=== PATIENT | female | born 1995 | race African-American/Black ===

== ENCOUNTER 2021-05-21 00:04 | Inpatient (IN) ==
[2021-05-21] MEDS ORDERED: ONDANSETRON 4 MG/2 ML VIAL IV PRN (00:22)
[2021-05-21] MEDS ORDERED: BUTORPHANOL 2 MG/ML VIAL IV PRN (00:22)
[2021-05-21] MEDS ORDERED: LACTATED RINGERS 500 ML IV PRN (00:22)
[2021-05-21] MEDS ORDERED: MEPERIDINE 50 MG/1 ML VIAL IV PRN (00:22)
[2021-05-21 00:44] LABS: Basophils % 0.3 % (0.0-0.8); Eosinophils % 0.1 % (0.00-10.9); Hematocrit 34.2 VOL% (35.7-47.0); Hemoglobin 11.1 GM/DL (12.0-16.0); Immature Granulocytes % 0.4 %; Immature Granulocytes Absolute 0.03 #; Lymphocytes # 1.6 10*3/uL (1.4-4.0); Lymphocytes % 19.9 % (21.3-54.2); Mean Corpuscular HGB Conc 32.5 GM/DL (32-36); Mean Corpuscular Volume 82.6 FL (87-102); Mean Platelet Volume 8.9 FL (9.6-12.0); Monocytes % 8.1 % (1.7-12.7); Neutrophils % 71.2 % (38.7-73.9); Platelet Count 207 T/CUMM (130-400); Red Blood Count 4.14 MC/CUMM (3.8-5.5); Red Cell Distribution Width 16.1 % (9.3-17.3); White Blood Count 7.9 T/CUMM (4-12)
[2021-05-21 01:10] LABS: Alanine Aminotransferase 16 U/L (13-56); Albumin 2.4 G/DL (3.4-5.0); Alkaline Phosphatase 161 U/L (45-117); Aspartate Amino Transferase 23 U/L (0-37); Bilirubin,Total < 0.39 MG/DL (0.20-1.00); Blood Urea Nitrogen 4 MG/DL (7-18); Calcium 8.6 MG/DL (8.5-10.1); Carbon Dioxide 20 MMOL/L (21-32); Estimated Glom Filtration Rate 146 ML/MIN; Glucose 103 MG/DL (74-106); Osmolality,Calculated 271.7 MOS/KG (273-304); Potassium 3.1 MMOL/L (3.5-5.1); Sodium 138 MMOL/L (136-145); Total Protein 6.5 G/DL (6.4-8.2); Uric Acid 6.2 MG/DL (2.6-6.0)
[2021-05-21] MEDS: LACTATED RINGERS 1,000 ML IV SCH ×3 (03:45→22:04)
[2021-05-21] MEDS ORDERED: OXYTOCIN/LR 20 UNIT/1,000 ML BAG IV SCH (09:30)
[2021-05-21] MEDS ORDERED: PROMETHAZINE 25 MG/1 ML VIAL IM ONE (12:10)
[2021-05-21] MEDS ORDERED: ONDANSETRON 4 MG/2 ML VIAL IV ONE (12:10)
[2021-05-21] MEDS ORDERED: CITRIC ACID/SODIUM CITRATE 30 ML UDCUP PO ONE (12:10)
[2021-05-21] MEDS ORDERED: FAMOTIDINE 20 MG/2 ML VIAL IV ONE (12:10)
[2021-05-21] MEDS ORDERED: NALOXONE 0.4 MG/ML VIAL IV PRN (12:10)
[2021-05-21] MEDS ORDERED: diphenhydrAMINE 50 MG/1 ML VIAL IV PRN ×2 (12:10)
[2021-05-21] MEDS ORDERED: hydrOXYzine HCL 25 MG/1 ML VIAL IM PRN (12:10)
[2021-05-21] MEDS: ePHEDrine 50 MG/ML VIAL IV PRN ×2 (13:39→13:44)
[2021-05-21 15:36] LABS: Bilirubin,Urine Negative (Negative); Blood, Urine Negative (Negative); Glucose,Urine (UA) Negative (Negative); Ketones,Urine Negative (Negative); Nitrite,Urine Negative (Negative); Protein,Urine Negative; RBC,Urine <1 /HPF (0-4); Squamous Epithelial Cell,Urine Occasional /HPF (0-10); Urine Appearance CLEAR (Clear); Urine Color Yellow (Yellow); Urine Specific Gravity 1.005 (1.001-1.035); Urine Urobilinogen < 2.0 EU/DL (0.2-1.0)
[2021-05-21] MEDS ORDERED: POTASSIUM CHLORIDE RIDER 10 MEQ/100 ML PREMIX IV PRN ×2 (19:01→19:06)
[2021-05-21] MEDS: fentaNYL 2 MCG/ROPIV 0.2% EPID 100 ML EPIDURAL SCH (20:05)
[2021-05-21] MEDS ORDERED: POTASSIUM CHLORIDE 20 MEQ TABLET PO ONE (23:09)
[2021-05-22] MEDS: fentaNYL 2 MCG/ROPIV 0.2% EPID 100 ML EPIDURAL SCH (03:54)
[2021-05-22] MEDS ORDERED: ceFAZolin 3,000 MG in SYRINGE 1 EACH IV ONE (07:04)
[2021-05-22] MEDS ORDERED: ONDANSETRON 4 MG/2 ML VIAL ONE (07:38)
[2021-05-22] MEDS ORDERED: LIDOCAINE MPF 2% /EPI 20 ML VIAL ONE (07:42)
[2021-05-22] MEDS ORDERED: OXYTOCIN 10 UNIT/ML VIAL IM ONE (07:57)
[2021-05-22] MEDS ORDERED: OXYTOCIN/LR 30 UNIT/1,000 ML BAG IV ONE (07:57)
[2021-05-22] MEDS ORDERED: METHYLERGONOVINE 0.2 MG/1 ML AMP ONE (08:05)
[2021-05-22] MEDS ORDERED: TRANEXAMIC ACID 1,000 MG/10 ML VIAL ONE (08:05)
[2021-05-22] MEDS ORDERED: CARBOPROST TROMETHAMINE 250 MCG/ML AMP IM ONE (08:05)
[2021-05-22] MEDS ORDERED: SODIUM CHLORIDE 0.9% 0 ML IV ONE (08:05)
[2021-05-22] MEDS ORDERED: miSOPROStoL 200 MCG TABLET ONE (08:05)
[2021-05-22] MEDS ORDERED: KETOROLAC 30 MG/1 ML VIAL ONE (08:49)
[2021-05-22] MEDS ORDERED: ACETAMINOPHEN INJ 1,000 MG/100 ML VIAL IV ONE (08:49)
[2021-05-22] MEDS ORDERED: propofoL 200 MG/20 ML VIAL IV ONE (09:39)
[2021-05-22 09:41] LABS: Cord Arterial Blood HCO3 16.6 MMOL/L
[2021-05-22 09:44] LABS: Cord Venous Blood HCO3 20.6 MMOL/L; Cord Venous Blood PCO2 50.5 MMHG; Cord Venous Blood PO2 < 19.0 MMHG
[2021-05-22] MEDS ORDERED: OXYTOCIN/LR 20 UNIT/1,000 ML BAG IV ONE (10:02)
[2021-05-22] MEDS ORDERED: ACETAMINOPHEN 325 MG TABLET PO PRN (10:02)
[2021-05-22] MEDS ORDERED: ONDANSETRON 4 MG/2 ML VIAL IV PRN (10:02)
[2021-05-22] MEDS ORDERED: RHO(D) IMMUNE GLOBULIN 300 MCG SYRINGE IM ONE (10:02)
[2021-05-22] MEDS ORDERED: MAGNESIUM HYDROXIDE SUSP 30 ML UDCUP PO PRN (10:02)
[2021-05-22] MEDS ORDERED: LACTATED RINGERS 1,000 ML IV SCH (10:30)
[2021-05-22] MEDS ORDERED: POTASSIUM CHLORIDE 20 MEQ TABLET PO ONE ×2 (11:55→12:00)
[2021-05-22] MEDS: IBUPROFEN 800 MG TABLET PO PRN (13:50)
[2021-05-22] MEDS: KETOROLAC 30 MG/1 ML VIAL IV SCH ×2 (16:31→21:53)
[2021-05-22] MEDS: ACETAMINOPHEN 500 MG TABLET PO SCH ×2 (16:32→21:51)
[2021-05-22] MEDS: ceFAZolin 2,000 MG/50 ML DUPLEX IV SCH (17:23)
[2021-05-22 19:01] LABS: Basophils % 0.3 % (0.0-0.8); Eosinophils % 0.1 % (0.00-10.9); Hematocrit 26.9 VOL% (35.7-47.0); Hemoglobin 8.6 GM/DL (12.0-16.0); Immature Granulocytes % 0.6 %; Immature Granulocytes Absolute 0.08 #; Lymphocytes % 7.6 % (21.3-54.2); Mean Corpuscular Volume 85.4 FL (87-102); Mean Platelet Volume 9.7 FL (9.6-12.0); Monocytes % 7.7 % (1.7-12.7); Neutrophils % 83.7 % (38.7-73.9); Platelet Count 196 T/CUMM (130-400); Red Blood Count 3.15 MC/CUMM (3.8-5.5); Red Cell Distribution Width 16.7 % (9.3-17.3); White Blood Count 13.4 T/CUMM (4-12)
[2021-05-22 20:24] LABS: Band Neutrophils 3 % (0-10); Lymphocytes 7 % (20-55); Segmented Neutrophils 85 % (50-85); Total Cells Counted 100
[2021-05-22 20:25] LABS: Macrocytosis Slight; Reactive Lymphocytes 1+; Schistocytes Slight
[2021-05-22 20:26] LABS: Burr Cells Slight; Platelet Estimate Adequate
[2021-05-22] MEDS: DOCUSATE SODIUM 100 MG CAPSULE PO SCH (21:04)
[2021-05-23] MEDS: ceFAZolin 2,000 MG/50 ML DUPLEX IV SCH (01:26)
[2021-05-23] MEDS: ACETAMINOPHEN 500 MG TABLET PO SCH (03:47)
[2021-05-23] MEDS: KETOROLAC 30 MG/1 ML VIAL IV SCH ×4 (03:52→22:56)
[2021-05-23 06:17] LABS: Basophils % 0.2 % (0.0-0.8); Eosinophils % 0.1 % (0.00-10.9); Hematocrit 25.7 VOL% (35.7-47.0); Hemoglobin 8.2 GM/DL (12.0-16.0); Immature Granulocytes % 0.6 %; Immature Granulocytes Absolute 0.09 #; Lymphocytes # 0.9 10*3/uL (1.4-4.0); Lymphocytes % 6.2 % (21.3-54.2); Mean Corpuscular HGB Conc 31.9 GM/DL (32-36); Mean Corpuscular Volume 85.4 FL (87-102); Mean Platelet Volume 9.7 FL (9.6-12.0); Monocytes % 7.1 % (1.7-12.7); Neutrophils % 85.8 % (38.7-73.9); Platelet Count 190 T/CUMM (130-400); Red Blood Count 3.01 MC/CUMM (3.8-5.5); Red Cell Distribution Width 16.4 % (9.3-17.3)
[2021-05-23 06:54] LABS: Band Neutrophils 2 % (0-10); Hypochromasia 1+; Lymphocytes 4 % (20-55); Microcytosis 1+; Platelet Estimate Adequate; Segmented Neutrophils 89 % (50-85); Total Cells Counted 100
[2021-05-23 06:55] LABS: Albumin 1.7 G/DL (3.4-5.0); Bilirubin,Total 0.6 MG/DL (0.20-1.00); Calcium 8.1 MG/DL (8.5-10.1); Osmolality,Calculated 271.8 MOS/KG (273-304); Potassium 4.2 MMOL/L (3.5-5.1); Total Protein 5.1 G/DL (6.4-8.2)
[2021-05-23] MEDS: DOCUSATE SODIUM 100 MG CAPSULE PO SCH ×2 (09:14→20:14)
[2021-05-23] MEDS: FERROUS SULFATE 325 MG TABLET PO SCH ×3 (09:14→20:14)
[2021-05-23] MEDS: SIMETHICONE CHEW 80 MG TABLET PO PRN ×2 (09:14→15:52)
[2021-05-23] MEDS: MULTIVITAMIN (PRENATAL) TABLET PO SCH (09:40)
[2021-05-23] MEDS: IBUPROFEN 800 MG TABLET PO PRN ×2 (12:58→20:15)
[2021-05-23] MEDS ORDERED: BISACODYL 10 MG SUPP RECTAL PRN (20:09)
[2021-05-23] MEDS: METOCLOPRAMIDE 10 MG TABLET PO SCH (22:13)
[2021-05-24] MEDS: IBUPROFEN 800 MG TABLET PO PRN ×2 (06:23→20:28)
[2021-05-24] MEDS: KETOROLAC 30 MG/1 ML VIAL IV SCH (06:57)
[2021-05-24] MEDS: FERROUS SULFATE 325 MG TABLET PO SCH ×3 (08:25→20:28)
[2021-05-24] MEDS: DOCUSATE SODIUM 100 MG CAPSULE PO SCH ×2 (08:25→20:28)
[2021-05-24] MEDS: MULTIVITAMIN (PRENATAL) TABLET PO SCH (10:20)
[2021-05-25] MEDS: IBUPROFEN 800 MG TABLET PO PRN ×2 (05:59→12:59)
[2021-05-25] MEDS: METOCLOPRAMIDE 10 MG TABLET PO SCH (06:04)
[2021-05-25] MEDS: FERROUS SULFATE 325 MG TABLET PO SCH ×2 (08:36→15:50)
[2021-05-25] MEDS: DOCUSATE SODIUM 100 MG CAPSULE PO SCH (08:36)
[2021-05-25] MEDS: SIMETHICONE CHEW 80 MG TABLET PO PRN (08:36)
[2021-05-25] MEDS: MULTIVITAMIN (PRENATAL) TABLET PO SCH (08:36)
[2021-05-25 08:52] VITALS: BP 121/71
== END 2021-05-25 16:10 | disposition home or self-care (01) | DRG 540 ==
LOC: N.LD 00:04 → N.OB 05-22 15:15
PROVIDERS: ADMIT Obstetrics & Gynecology; ATTEND Obstetrics & Gynecology
PROC: LDCSECT (ICD-10-PCS; 2021-05-22 08:30)

== ENCOUNTER 2021-06-01 03:52 | Observation (INO) ==
[2021-06-01] MEDS ORDERED: FUROSEMIDE 40 MG/4 ML VIAL IV STA (05:03)
[2021-06-01] MEDS ORDERED: ONDANSETRON 4 MG/2 ML VIAL IV STA (05:03)
[2021-06-01] MEDS ORDERED: hydrALAZINE 20 MG/1 ML VIAL IV STA (05:03)
[2021-06-01 05:47] LABS: Basophils % 0.3 % (0.0-0.8); Eosinophils % 0.2 % (0.00-10.9); Hematocrit 21.5 VOL% (35.7-47.0); Hemoglobin 6.6 GM/DL (12.0-16.0); Immature Granulocytes % 2.2 %; Immature Granulocytes Absolute 0.33 #; Lymphocytes # 1.5 10*3/uL (1.4-4.0); Lymphocytes % 10.2 % (21.3-54.2); Mean Corpuscular HGB Conc 30.7 GM/DL (32-36); Mean Corpuscular Volume 85.3 FL (87-102); Mean Platelet Volume 9.1 FL (9.6-12.0); Monocytes % 5.1 % (1.7-12.7); NRBC # 0.03 10*3/uL; Platelet Count 499 T/CUMM (130-400); Red Blood Count 2.52 MC/CUMM (3.8-5.5); Red Cell Distribution Width 16.9 % (9.3-17.3); White Blood Count 14.9 T/CUMM (4-12)
[2021-06-01 06:02] LABS: INR 1.1; PT Patient Result 12.3 SECS (10.5-12.0)
[2021-06-01] MEDS ORDERED: PIPERACILLIN/TAZOBACTAM 3,375 MG in SODIUM CHLORIDE 0.9% 100 ML IV STA (06:05)
[2021-06-01 06:09] LABS: Bilirubin,Total 0.5 MG/DL (0.20-1.00); Calcium 8.4 MG/DL (8.5-10.1); Osmolality,Calculated 277.4 MOS/KG (273-304); Potassium 3.6 MMOL/L (3.5-5.1); Total Protein 6.9 G/DL (6.4-8.2)
[2021-06-01] MEDS ORDERED: BISACODYL 10 MG SUPP RECTAL PRN (06:29)
[2021-06-01] MEDS ORDERED: ACETAMINOPHEN 325 MG TABLET PO PRN (06:29)
[2021-06-01] MEDS ORDERED: MAGNESIUM HYDROXIDE SUSP 30 ML UDCUP PO PRN (06:29)
[2021-06-01] MEDS ORDERED: ONDANSETRON 4 MG/2 ML VIAL IV PRN (06:29)
[2021-06-01] MEDS ORDERED: SODIUM CHLORIDE 0.9% 1,000 ML IV PRN (06:30)
[2021-06-01] MEDS ORDERED: LACTATED RINGERS 1,000 ML IV SCH (06:30)
[2021-06-01] MEDS ORDERED: HYDROmorphone 2 MG/1 ML VIAL IV STA (07:19)
[2021-06-01] MEDS: IBUPROFEN 800 MG TABLET PO PRN ×2 (07:37→19:58)
[2021-06-01 09:14] LABS: Bilirubin,Urine Negative (Negative); Blood, Urine Large mg/dL (Negative); Glucose,Urine (UA) Negative (Negative); Ketones,Urine Negative (Negative); Mucus,Urine Occasional /LPF (Occasional); Nitrite,Urine Negative (Negative); Protein,Urine Negative; RBC,Urine 5 /HPF (0-4); Squamous Epithelial Cell,Urine Occasional /HPF (0-10); Urine Appearance CLEAR (Clear); Urine Color Straw (Yellow); Urine Specific Gravity 1.008 (1.001-1.035); Urine Urobilinogen < 2.0 EU/DL (<2.0)
[2021-06-01] MEDS: DOCUSATE SODIUM 100 MG CAPSULE PO SCH ×2 (12:44→20:36)
[2021-06-01] MEDS ORDERED: oxyCODONE/ACETAMINOPHEN 5-325 MG TABLET PO PRN (13:19)
[2021-06-01 14:16] LABS: Hematocrit 23.7 VOL% (35.7-47.0); Hemoglobin 7.4 GM/DL (12.0-16.0)
[2021-06-01] MEDS: oxyCODONE/ACETAMINOPHEN 5-325 MG TABLET PO PRN ×2 (15:04→21:20)
[2021-06-01] MEDS: PIPERACILLIN/TAZOBACTAM 3,375 MG in SODIUM CHLORIDE 0.9% 100 ML IV SCH ×2 (15:05→23:22)
[2021-06-01] MEDS: FERROUS SULFATE 325 MG TABLET PO SCH (17:09)
[2021-06-02] MEDS: oxyCODONE/ACETAMINOPHEN 5-325 MG TABLET PO PRN ×2 (05:36→12:13)
[2021-06-02 06:02] LABS: Basophils % 0.2 % (0.0-0.8); Eosinophils % 0.1 % (0.00-10.9); Hematocrit 27.5 VOL% (35.7-47.0); Hemoglobin 8.7 GM/DL (12.0-16.0); Immature Granulocytes % 2.6 %; Immature Granulocytes Absolute 0.35 #; Lymphocytes # 1.5 10*3/uL (1.4-4.0); Lymphocytes % 11.1 % (21.3-54.2); Mean Corpuscular HGB Conc 31.6 GM/DL (32-36); Mean Corpuscular Volume 84.9 FL (87-102); Mean Platelet Volume 8.9 FL (9.6-12.0); Monocytes % 3.9 % (1.7-12.7); NRBC # 0.04 10*3/uL; Neutrophils % 82.1 % (38.7-73.9); Platelet Count 429 T/CUMM (130-400); Red Blood Count 3.24 MC/CUMM (3.8-5.5); Red Cell Distribution Width 15.9 % (9.3-17.3); White Blood Count 13.4 T/CUMM (4-12)
[2021-06-02 06:23] LABS: Band Neutrophils 1 % (0-10); Eosinophils 1 % (0-10); Hypochromasia 2+; Lymphocytes 12 % (20-55); Segmented Neutrophils 82 % (50-85); Total Cells Counted 100
[2021-06-02 06:24] LABS: Microcytosis 1+; Ovalocytes Slight; Platelet Estimate Increased; Polychromasia Slight
[2021-06-02] MEDS: PIPERACILLIN/TAZOBACTAM 3,375 MG in SODIUM CHLORIDE 0.9% 100 ML IV SCH (06:40)
[2021-06-02] MEDS: DOCUSATE SODIUM 100 MG CAPSULE PO SCH ×2 (07:58→13:39)
[2021-06-02] MEDS: FERROUS SULFATE 325 MG TABLET PO SCH (07:58)
[2021-06-02] MEDS: IBUPROFEN 800 MG TABLET PO PRN (12:13)
[2021-06-02 13:24] VITALS: BP 134/84
== END 2021-06-02 14:40 | disposition home or self-care (01) ==
LOC: N.EDINP 03:52 → N.ED 03:52 → N.OB 08:46
PROVIDERS: ADMIT Obstetrics & Gynecology; ATTEND Obstetrics & Gynecology